=== PATIENT | male | born 1965 | race Two or more races ===

== ENCOUNTER 2016-10-16 08:42 | Day surgery (SDC) | payer MEDICAID ==
--- NOTE | 2016-10-15 17:54 | GHP ---
[f rep st] PREOP HISTORY AND PHYSICAL HISTORY OF PRESENT ILLNESS: A 51-year-old male who is admitted at this time for umbilical hernia repair. He has had a previous colectomy for diverticulitis , steadily enlarging periumbilical hernia which is now causing him discomfort. Risks and options have been fully discussed and he wishes to proceed. ALLERGIES: None. MEDICATIONS: Bentyl, hydrocortisone, suppositories, metoprolol, Nexium. PAST SURGICAL HISTORY: He has had a recent colonoscopy which showed some hemorrhoid disease, as well as a rectal polyp. REVIEW OF SYSTEMS: Reveals that he has no major medical problems on a 10-point review of systems, not listed in the HPI. Specifically has no cardiopulmonary difficulties and he does smoke less than half pack per day. FAMILY HISTORY: Noncontributory. PHYSICAL EXAM: GENERAL: Reveals an alert 51-year-old male in no acute distress. He is slightly overweight. HEAD AND NECK: Reveals no icterus or adenopathy. No bruits. No thyromegaly. Neck is supple. Pupils are normal. CHEST: Clear to auscultation and percussion. CARDIAC: Reveals a regular rhythm without murmurs. ABDOMEN: Soft and nontender without masses or organomegaly. He has a reducible periumbilical hernia. There are no inguinal hernias. GENITALIA: Normal. EXTREMITIES: Reveal full range of motion. Full pulses. NEUROLOGIC: Physiologic. SKIN: Reveals no major lesions or rashes. IMPRESSION: Symptomatic periumbilical hernia. PLAN: Open repair. Risks and options have been fully discussed. He wishes to proceed. /[id number]/MODL MTDD
[~2016-10-16 08:42] MED LIST: ceFAZolin 2 GM/DEXTROSE 100 ML IV ONE
[2016-10-16] MEDS ORDERED: LIDOCAINE 1% 2 ML INJ ID PRN (08:59)
[2016-10-16] MEDS ORDERED: LR 1,000 ML IV ONE ×2 (08:59→10:55)
--- NOTE | 2016-10-16 09:09 | PDANEPAE ---
ANE History of Present Illness 51 year old male presents for umbilical hernia repair. ANE Past Medical History - Cardiovascular History Hx Hypertension: No Hx Arrhythmias: Yes Hx Chest Pain: No Hx Coronary Artery / Peripheral Vascular Disease: No Hx CHF / Valvular Disease: No Hx Palpitations: No Cardiovascular History Comment: TAKES METOPROLOL. ASYMPTOMATIC - Pulmonary History Hx COPD: No Hx Asthma/Reactive Airway Disease: No Hx Recent Upper Respiratory Infection: No Hx Oxygen in Use at Home: No Hx Sleep Apnea: No Sleep Apnea Screening Result - Last Documented: Negative - Neurologic History Hx Cerebrovascular Accident: No Hx Seizures: No Hx Dementia: No - Endocrine History Hx Diabetes: No Hypothyroid: No Hyperthyroid: No Obesity: mild - Renal History Hx Renal Disorders: No - Liver History Hx Hepatic Disorders: No - Neurological & Psychiatric Hx Hx Neurological and Psychiatric Disorders: No - Cancer History Hx Cancer: No - Congenital Disorder History Hx Congenital Disorders: No - GI History GERD: mild Hx Gastrointestinal Disorders: Yes Gastrointestinal History Comment: COLON POLYPS. ACID REFLUX - Other Health History Other Health History: NEG - Chronic Pain History Chronic Pain: No - Surgical History Prior Surgeries: BOWEL RESECTION FOR DIVERTICULITIS ANE Review of Systems - Exercise capacity Exercise capacity: >=4 METS METS (RN): 5 METS ANE Patient History - Allergies Allergies/Adverse Reactions: No Allergies [NKDA] Allergy (Verified 10/15/16 13:33) - Home Medications Home medications: home medication list seen and reviewed Home Medications: Metoprolol Succinate 10/15/16 [Last Taken 10/16/16 06:30] Nexium 10/15/16 [Last Taken 10/16/16 06:30] - NPO status NPO Status: no food or drink >8 hours - Anes Hx Anes Hx: no prior problems - Smoking Hx Smoking Status: Current some day smoker - Alcohol Use Alcohol Use: Occasionally - Family Anes Hx Family Anes Hx: neg - N/A Family Hx Anesthesia Complications: NEG ANE Labs/Vital Signs - Vital Signs Vital Signs: reviewed preoperatively; see RN documention for details Height: 177.8 cm Weight: 99.79 kg ANE Physical Exam - Airway Neck exam: FROM Mallampati Score: Class 1 Mouth exam: normal dental/mouth exam, patel - Pulmonary Pulmonary: no respiratory distress - Cardiovascular Cardiovascular: regular rate and rhythym - ASA Status ASA Status: II ANE Anesthesia Plan Anesthesia Plan: general endotracheal anesthesia
[2016-10-16] MEDS ORDERED: BUPIVACAINE 0.5% 30 ML SDV ONE (09:12)
[2016-10-16 09:15] VITALS: TEMP 97.9
[2016-10-16] MEDS ORDERED: LIDOCAINE 1% 2 ML INJ ONE (09:35)
--- NOTE | 2016-10-16 10:23 | PDHPUP ---
History & Physical Update H&P update statement: This history and physical update is based on an assessment of the patient which was completed after admission or registration (within 24 hours), but prior to the surgery/procedure. H&P update: H&P reviewed & patient examined, no change in patient's condition since H&P completed
[2016-10-16] MEDS ORDERED: MIDAZOLAM 2 MG/2 ML VIAL IVP ONE (10:28)
[2016-10-16] MEDS ORDERED: PROPOFOL 200 MG/20 ML VIAL ONE (10:36)
[2016-10-16] MEDS ORDERED: fentaNYL 100 MCG/2 ML INJ ONE ×2 (10:37→12:38)
[2016-10-16] MEDS ORDERED: LIDOCAINE 2% 5 ML SDV ONE (11:20)
[2016-10-16] MEDS ORDERED: ROCURONIUM 50 MG/5 ML VIAL ONE (11:20)
[2016-10-16] MEDS ORDERED: MEPERIDINE 25 MG/ML SYR IVP PRN (11:43)
[2016-10-16] MEDS ORDERED: LR 500 ML IV PRN (11:43)
[2016-10-16] MEDS ORDERED: ONDANSETRON 4 MG/2 ML VIAL IVP PRN (11:43)
[2016-10-16] MEDS ORDERED: NALOXONE HCL 0.4 MG/ML INJ IVP PRN (11:43)
[2016-10-16] MEDS ORDERED: ONDANSETRON 4 MG/2 ML VIAL ONE (11:44)
[2016-10-16] MEDS ORDERED: DEXAMETHASONE 4 MG/ML VIAL ONE (11:44)
[2016-10-16] MEDS: fentaNYL 100 MCG/2 ML INJ IVP PRN ×2 (12:40→13:03)
--- NOTE | 2016-10-16 12:48 | POSTOPPROG ---
Post Op Note Date of Operation: 10/16/16 Surgeon: Kurtis Dozier Anesthesiologist: Ramos Anesthesia: GET(General Endotracheal) Pre-op Diagnosis: Umbilical hernia Post-op Diagnosis: Same Procedure: Open umbilical hernia repair with mesh Findings: umbilical hernia Inf/Abcess present in the surg proc area at time of surgery?: No EBL: Minimal
--- NOTE | 2016-10-16 13:14 | POSTANESTH ---
Post Anesthetic Evaluation Cardiovascular Status: Normal, Stable Respiratory Status: Normal, Stable Level of Consciousness/Mental Status: Can Participate in Eval Pain Control: Adequate, Prn Tx Ordered Nausea/Vomiting Control: Adequate, Prn Tx Ordered Complications Possibly Related to Anesthesia: None Noted
[2016-10-16 13:25] VITALS: PULSE 65
[2016-10-16] MEDS ORDERED: HYDROmorphONE/DILAUDID 1 MG/ML SYR ONE (13:57)
[2016-10-16] MEDS: HYDROmorphONE/DILAUDID 1 MG/ML SYR IVP PRN ×3 (13:59→14:45)
[2016-10-16 15:07] VITALS: BP 105/72; RESP 16; O2SAT 91
[2016-10-17] MEDS ORDERED: ENOXAPARIN 40 MG/0.4 ML SYR SC SCH (09:00)
== END 2016-10-16 14:55 | disposition home or self-care (01) ==
LOC: FSGY 08:42
PROVIDERS: ATTEND Surgery
PROC: 0WUF4JZ Supplement Abdominal Wall with Synthetic Substitute, Percutaneous Endoscopic Approach (ICD-10-PCS; principal; 2016-10-16 10:15)
DX: K42.9 Umbilical hernia without obstruction or gangrene (principal)
CPT/HCPCS: C1781; J0690; J1100; J1170; J2250; J2405; J2704; J3010